=== PATIENT | male | born 1940 | race Two or more races ===

== ENCOUNTER 2018-10-12 19:11 | Inpatient (IN) | payer BC ==
[2018-10-12] MEDS ORDERED: NS 0.9% 1000 ML* 2,000 ML IV ONE (19:44)
[2018-10-12 20:06] LABS: ABS Basophils 0 10^3/ul (0-0.2); ABS Eosinophils 0 10^3/ul (0-0.6); ABS Lymphocytes 1.1 10^3/ul (1.0-4.8); ABS Monocytes 0.7 10^3/ul (0-0.8); ABS Neutrophils 5.4 10^3/ul (1.5-7.7); ABS Nucleated RBC 0 10^3/ul; Eosinophil % 0.6 %; Hematocrit 54 % (42-52); Hemoglobin 18.9 g/dl (14.0-18.0); Lymphocyte % 14.8 %; Mean Corpuscular HGB Conc 35 g/dl (31-36); Mean Corpuscular Hemoglobin 34 pg (27-31); Mean Corpuscular Volume 98 fL (80-94); Mean Platelet Volume 6.6 fL (7.4-10.4); Nucleated Red Blood Cells % 0.1; Platelet Count 227 10^3/ul (150-450); Red Blood Count 5.58 10^6/ul (4.00-5.40); Red Cell Distribution Width 14 % (10.5-15); White Blood Count 7.2 10^3/ul (3.5-10.8)
[2018-10-12 20:25] LABS: Albumin 4.2 g/dL (3.2-5.2); Albumin/Globulin Ratio 1.2 (1-3); BUN/Creatinine Ratio 13.6 (8-20); Calcium 9.2 mg/dL (8.6-10.3); EGFR African American 67.9 (>60); EGFR Non-African American 56.2 (>60); Globulin 3.5 g/dL (2-4); Magnesium 2.2 mg/dL (1.9-2.7); Potassium 3.9 mmol/L (3.5-5.0); Total Bilirubin 1.1 mg/dL (0.2-1.0); Total Protein 7.7 g/dL (6.4-8.9)
[2018-10-12] MEDS ORDERED: Iodixanol* (CONTRAST) 320 MG/ML 100 ML SDV IV ONE (20:39)
--- NOTE | 2018-10-12 20:44 | ED ---
GI/ HPI - HPI Summary HPI Summary: 78 year male with a history of a J-pouch from a colon resection presents with diarrhea for the past 3 days. He states he is not been able to eat anything without having diarrhea. He states just liquid bowel movement. No vomiting or nausea. He states that he is having abdominal pain that feels similar to when he had a small bowel obstruction. He states that he gets dehydrated and becomes very weak quickly to the bowel resection. He states he feels very weak. he admits to mild headache. No fever. No cough. No sore throat. He states he has been drinking Gatorade but feels that he is not keeping up down. Denies any urinary symptoms. He did just come back from [place] couple days ago. No one else is sick. - History of Current Complaint Chief Complaint: EDNauseaVomitDiarrh Time Seen by Provider: 10/12/18 19:44 Stated Complaint: GENERAL ILLNESS Pain Intensity: 3 - Allergy/Home Medications Allergies/Adverse Reactions: Allergies Allergy/AdvReac Type Severity Reaction Status Date / Time Sulfa (Sulfonamide Allergy Hives Verified 10/12/18 19:35 Antibiotics) PMH/Surg Hx/FS Hx/Imm Hx Endocrine/Hematology History: Denies: Hx Anticoagulant Therapy, Hx Diabetes, Hx Systemic Lupus Erythematosus, Hx Thyroid Disease Cardiovascular History: Reports: Hx Syncope - r/t recent dehydration Denies: Hx Congestive Heart Failure, Hx Hypertension Respiratory History: Denies: Hx Asthma, Hx Chronic Obstructive Pulmonary Disease (COPD) GI History: Reports: Hx Gastroesophageal Reflux Disease, Hx Ulcer, Other GI Disorders - colon resection, pt has J pouch since 1998 Comment Only: Hx Gall Bladder Disease - gall bladder removed History: Reports: Hx Kidney Stones - RT 07/19/14 Denies: Hx Dialysis, Hx Renal Disease Musculoskeletal History: Reports: Hx Orthopedic Injury - bilat leg fractures Denies: Hx Rheumatoid Arthritis, Hx Osteoporosis Sensory History: Reports: Hx Vision Problem Opthamlomology History: Reports: Hx Vision Problem - Cancer History Hx Chemotherapy: No - Surgical History Surgery Procedure, Year, and Place: ULCERATIVE COLITIS WITH SURGERY IN 1998 AT [facility]/APPY/CHOLECYSTECTOMY, illiostomy, broken leg,plates Hx Anesthesia Reactions: No Infectious Disease History: No Infectious Disease History: Denies: Hx Hepatitis, Hx Human Immunodeficiency Virus (HIV), Traveled Outside the [place] in Last 30 Days - Family History Known Family History: Positive: Non-Contributory - Social History Alcohol Use: Weekly Alcohol Amount: GLASS OF WINE Substance Use Type: Reports: None Smoking Status (MU): Former Smoker Review of Systems Negative: Fever Negative: Chest Pain Negative: Shortness Of Breath Positive: Abdominal Pain, Diarrhea. Negative: Vomiting, Nausea Negative: dysuria All Other Systems Reviewed And Are Negative: Yes Physical Exam Triage Information Reviewed: Yes Vital Signs On Initial Exam: Initial Vitals Temp Pulse Resp BP Pulse Ox 98.7 F 75 16 133/83 95 10/12/18 19:32 10/12/18 19:32 10/12/18 19:32 10/12/18 19:32 10/12/18 19:32 Vital Signs Reviewed: Yes Appearance: Positive: Ill-Appearing Skin: Positive: Other - decreased skin turgor Head/Face: Positive: Normal Head/Face Inspection Eyes: Positive: Normal, Conjunctiva Clear ENT: Positive: Pharynx normal Respiratory/Lung Sounds: Positive: Clear to Auscultation, Breath Sounds Present Cardiovascular: Positive: Normal, RRR Abdomen Description: Positive: Soft, Other: - mild diffuse abd tenderness Bowel Sounds: Positive: Present Musculoskeletal: Positive: Normal Neurological: Positive: Normal Psychiatric: Positive: Normal Diagnostics - Vital Signs Vital Signs Temp Pulse Resp BP Pulse Ox 10/12/18 19:32 98.7 F 75 16 133/83 95 - Laboratory Lab Results: Lab Results 10/12/18 10/12/18 10/12/18 Range/Units 19:55 19:55 19:55 WBC 7.2 (3.5-10.8) 10^3/ul RBC 5.58 H (4.00-5.40) 10^6/ul Hgb 18.9 H (14.0-18.0) g/dl Hct 54 H (42-52) % MCV 98 H (80-94) fL MCH 34 H (27-31) pg MCHC 35 (31-36) g/dl RDW 14 (10.5-15) % Plt Count 227 (150-450) 10^3/ul MPV 6.6 L (7.4-10.4) fL Neut % (Auto) 75.1 % Lymph % (Auto) 14.8 % [place] % (Auto) 9.1 % Eos % (Auto) 0.6 % Baso % (Auto) 0.4 % Absolute Neuts (auto) 5.4 (1.5-7.7) 10^3/ul Absolute Lymphs (auto) 1.1 (1.0-4.8) 10^3/ul Absolute Monos (auto) 0.7 (0-0.8) 10^3/ul Absolute Eos (auto) 0 (0-0.6) 10^3/ul Absolute Basos (auto) 0 (0-0.2) 10^3/ul Absolute Nucleated RBC 0 10^3/ul Nucleated RBC % 0.1 Sodium 131 L (135-145) mmol/L Potassium 3.9 (3.5-5.0) mmol/L Chloride 100 L (101-111) mmol/L Carbon Dioxide 22 (22-32) mmol/L Anion Gap 9 (2-11) mmol/L BUN 17 (6-24) mg/dL Creatinine 1.25 H (0.67-1.17) mg/dL Est GFR ( Amer) 67.9 (>60) Est GFR (Non-Af Amer) 56.2 (>60) BUN/Creatinine Ratio 13.6 (8-20) Glucose 106 H (70-100) mg/dL Lactic Acid 1.0 (0.5-2.0) mmol/L Calcium 9.2 (8.6-10.3) mg/dL Magnesium 2.2 (1.9-2.7) mg/dL Total Bilirubin 1.10 H (0.2-1.0) mg/dL AST 35 (13-39) U/L ALT 33 (7-52) U/L Alkaline Phosphatase 84 (34-104) U/L C-Reactive Protein 10.00 H (<8.01) mg/L Total Protein 7.7 (6.4-8.9) g/dL Albumin 4.2 (3.2-5.2) g/dL Globulin 3.5 (2-4) g/dL Albumin/Globulin Ratio 1.2 (1-3) Lipase 12 (11.0-82.0) U/L Result Diagrams: 10/12/18 19:55 10/12/18 19:55 Lab Statement: Any lab studies that have been ordered have been reviewed, and results considered in the medical decision making process. - CT abd CT Interpretation Completed By: Radiologist Summary of CT Findings: IMPRESSION: 1. Mild small bowel obstruction with a point of transition in the lower right. abdomen which may reflect an adhesion. The appearance is similar to 08/04/2014. although the distal bowel is more collapsed giving a more dramatic transition. point. 2. Subtotal colectomy with distal ileocolic anastomosis. 3. Mild fatty infiltration of the liver. 4. Slight induration of central mesentery which is decreased since the prior. study. Re-Evaluation - Re-Evaluation First Eval Re-Evaluation Time: 20:52 Change: Improved Comment: feeling better after fluids GIGU Course/Dx - Course Course Of Treatment: 78 year male with a history of a J-pouch from a colon resection presents with diarrhea for the past 3 days. He states that he is having abdominal pain that feels similar to when he had a small bowel obstruction. No fever. He did just come back from [place] couple days ago. No one else is sick. on exam mild diffuse abd tenderness. wbc normal. sodium low so gave fluids. CT shows ileus vs SBO. spoke with radiologist about this read and states that he sees a transition point. discussed with dr cao who agrees to admit - Diagnoses Differential Diagnoses - Male: Gastroenteritis (Bacterial), Gastroenteritis ( Viral), Urinary Tract Infection Provider Diagnoses: Diarrhea, Small bowel obstruction Discharge - Sign-Out/Discharge Documenting (check all that apply): Patient Departure - Discharge Plan Condition: Stable Disposition: ADMITTED TO [facility] - Billing Disposition and Condition Condition: STABLE Disposition: Admitted to [facility]
[2018-10-12] MEDS ORDERED: NS 0.9% 1000 ML* 1,000 ML IV ONE (20:45)
[2018-10-12 21:08] LABS: Urine Appearance Clear; Urine Bilirubin Negative (Negative); Urine Blood Negative (Negative); Urine Color Yellow; Urine Glucose Negative (Negative); Urine Ketones Negative (Negative); Urine Nitrite Negative (Negative); Urine Protein Negative (Negative); Urine Specific Gravity 1.003 (1.010-1.030); Urine Urobilinogen Negative (Negative)
[2018-10-12] MEDS ORDERED: Ondansetron INJ* 2 MG/ML VIAL IV ONE (22:59)
[2018-10-12] MEDS ORDERED: Ondansetron INJ* 2 MG/ML VIAL IV PRN (23:20)
[2018-10-12] MEDS ORDERED: Morphine VIAL* 4 MG/ML VIAL (1 ml vial) IV PRN (23:21)
--- NOTE | 2018-10-13 01:02 | ADMNOTE ---
Subjective Date of Service: 10/12/18 Interval History: HISTORY & PHYSICAL CC: abdo pain HPI: Patient is 78 year old man w/ history of ulcerative colitis and total colectomy with J-pouch. He has had 2 days of increasing diarrhea frequency, abdominal bloating and cramps, nausea, and anorexia. He rates pain in abdomen 3- 5/10. He began vomiting in the ER after presentation. Denies fever. No blood seen in stool. Pain is in waves, colicky. Tried immodium at home for diarrhea. Had SBO one other occasion, admitted to this hospital in 2014. This feels like the same syndrome to the patient. 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 Smoked in distant past, alcohol socially, no drugs Past Medical History: Findings - PMH: Ulcerative colitis, GERD, dysphagia, BPH. PSH J-pouch 1998 w/ Dr. Glover in [place], cholecystectomy, RT ureter stented Review of Systems - Measurements Intake and Output: Intake and Output Last 24 Hours 10/10/18 10/11/18 10/12/18 10/13/18 06:59 06:59 06:59 06:59 Intake Total 1999 Balance 1999 Weight 92.986 kg Intake: IV Fluids 1999 - Review of Systems Constitutional Symptoms: Negative: Weight Loss, Fever Dermatology: Positive: Normal HEENT: Positive: Normal Eyes: Positive: Normal Thyroid: Positive: Normal Pulmonary: Positive: Normal Cardiology: Positive: Normal Gastroenterology: Positive: Abdominal Pain, Nausea, Vomiting, Anorexia, Diarrhea , Change in Bowel Habits Negative: Constipation, Blood in Stools Genital - Urinary: Positive: Normal Genitourinary - Male: Positive: Prostatism Endocrinology: Positive: Normal Neurology: Positive: Normal Psychiatry: Positive: Normal Objective Active Medications: Enoxaparin Sodium (Lovenox(*)) 40 mg SUBCUT Q24H CRISTOBAL Sodium Chloride (Ns 0.9% 1000 Ml*) 1,000 mls @ 125 mls/hr IV PER RATE CRISTOBAL Morphine Sulfate (Morphine Vial*) 2 mg IV Q2H PRN PRN Reason: PAIN Ondansetron HCl (Zofran Inj*) 4 mg IV Q6H PRN PRN Reason: NAUSEA Vital Signs - 8 hr 01/06/19 01/06/19 01/06/19 19:32 19:37 19:38 Temperature 37.1 C Pulse Rate 75 77 77 Respiratory 16 Rate Blood Pressure 133/83 124/87 (mmHg) O2 Sat by Pulse 95 96 94 Oximetry 10/12/18 10/12/18 10/12/18 21:37 22:00 22:07 Temperature Pulse Rate 68 65 64 Respiratory Rate Blood Pressure 116/81 112/67 (mmHg) O2 Sat by Pulse 97 95 94 Oximetry 10/12/18 10/13/18 22:37 00:30 Temperature 37.0 C Pulse Rate 67 67 Respiratory 15 Rate Blood Pressure 116/76 118/63 (mmHg) O2 Sat by Pulse 95 100 Oximetry Oxygen Devices in Use Now: None Appearance: no distress Eyes: No Scleral Icterus Ears/Nose/Mouth/Throat: NL Teeth, Lips, Gums Neck: NL Appearance and Movements; NL JVP Respiratory: Symmetrical Chest Expansion and Respiratory Effort, Clear to Auscultation Cardiovascular: NL Sounds; No Murmurs; No JVD, RRR Abdominal: No Hepatosplenomegaly, - - distended, soft, hyperactive BS, mildly tender epigastric Lymphatic: No Cervical Adenopathy Extremities: No Edema Skin: No Rash or Ulcers Neurological: Alert and Oriented x 3 Lines/Tubes/Other Access: Clean, Dry and Intact Peripheral IV Nutrition: Taking PO's Result Diagrams: 10/12/18 19:55 10/12/18 19:55 Additional Lab and Data: Laboratory Tests 10/12/18 10/12/18 10/12/18 19:55 19:55 20:51 Lactic Acid 1.0 Calcium 9.2 Magnesium 2.2 Total Bilirubin 1.10 H AST 35 ALT 33 C-Reactive Protein 10.00 H Albumin 4.2 Lipase 12 Ur Specific [place] 1.003 L Microbiology and Other Data: Microbiology 10/12/18 20:51 Stool Gross Appearance - Final Stool C. difficile DNA Amplification - Final 027 Presumptive NEGATIVE Toxigenic C.diff NEGATIVE Diagnostic Imaging: CT abdo/pelvis: transition point in RLQ, SBO Assess/Plan/Problems-Billing Assessment: 78 year old man w/ recurrent small bowel obstruction - Patient Problems (1) Small bowel obstruction Current Visit: Yes Status: Acute Priority: High Onset Date: 08/04/14 Code(s): K56.69 - OTHER INTESTINAL OBSTRUCTION * DO NOT USE * SNOMED Code(s): 684239261 Comment: [place] [facility] [place] rest, IV fluids to maintain hydration -antiemetics, will place NGT if vomiting -will have surgical consult if not resolving in 1-2 days (2) History of renal stent Current Visit: Yes Status: Chronic Priority: Medium Code(s): Z98.89 - OTHER SPECIFIED POSTPROCEDURAL STATES * DO NOT USE * SNOMED Code(s): 914400297 Comment: Creatinine mildly above baseline due to pre-renal state, will recheck in AM after rehydration (3) DVT prophylaxis Current Visit: Yes Status: Acute Priority: Low Code(s): XAX7170 - SNOMED Code(s): 562718999 Comment: -high risk -SCDs plus Lovenox Status and Disposition: Requires inpatient stay for monitoring, potential surgery.
[2018-10-13] MEDS: NS 0.9% 1000 ML* 1,000 ML IV SCH ×4 (01:25→23:39)
[2018-10-13] MEDS: Enoxaparin(*) 40 MG/0.4 ML SYR SUBCUT SCH ×2 (01:50→23:40)
[2018-10-13] MEDS ORDERED: PROCHLORPERAZINE INJ 5 MG/ML 2 ML VIAL IV PRN (02:07)
[2018-10-13 06:10] LABS: ABS Basophils 0 10^3/ul (0-0.2); ABS Eosinophils 0 10^3/ul (0-0.6); ABS Monocytes 0.6 10^3/ul (0-0.8); ABS Nucleated RBC 0 10^3/ul; Eosinophil % 0.2 %; Hematocrit 50 % (42-52); Hemoglobin 17.3 g/dl (14.0-18.0); Lymphocyte % 11.6 %; Mean Corpuscular HGB Conc 35 g/dl (31-36); Mean Corpuscular Hemoglobin 34 pg (27-31); Mean Corpuscular Volume 98 fL (80-94); Mean Platelet Volume 6.7 fL (7.4-10.4); Nucleated Red Blood Cells % 0; Platelet Count 223 10^3/ul (150-450); Red Blood Count 5.11 10^6/ul (4.00-5.40); Red Cell Distribution Width 14 % (10.5-15); White Blood Count 8.6 10^3/ul (3.5-10.8)
[2018-10-13 06:33] LABS: BUN/Creatinine Ratio 14.2 (8-20); Calcium 8.4 mg/dL (8.6-10.3); EGFR African American 71.2 (>60); EGFR Non-African American 58.9 (>60); Potassium 4.4 mmol/L (3.5-5.0)
[2018-10-13 09:32] LABS: Influenza A Molecular NEGATIVE (Negative); Influenza B Molecular NEGATIVE (Negative)
--- NOTE | 2018-10-13 09:58 | PN ---
Subjective Date of Service: 10/13/18 Interval History: Pt states that he is feeling better today. He states that he continues to have diarrhea, but it has decreased from 6-7 times per day to 2-4. He feels that his abdomen is distended and that he continues to have discomfort. 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 Smoked in distant past, alcohol socially, no drugs Past Medical History: Findings - PMH: Ulcerative colitis, GERD, dysphagia, BPH. PSH J-pouch 1998 w/ Dr. Glover in [place], cholecystectomy, RT ureter stented Objective Active Medications: Enoxaparin Sodium (Lovenox(*)) 40 mg SUBCUT Q24H CRISTOBAL Sodium Chloride (Ns 0.9% 1000 Ml*) 1,000 mls @ 125 mls/hr IV PER RATE CRISTOBAL Morphine Sulfate (Morphine Vial*) 2 mg IV Q2H PRN Ondansetron HCl (Zofran Inj*) 4 mg IV Q6H PRN Prochlorperazine Edisylate (Compazine Inj*) 5 mg IV Q6H PRN Vital Signs: Temp Pulse Resp BP Pulse Ox 98.5 F 66 16 95/51 94 10/13/18 07:40 10/13/18 07:40 10/13/18 07:40 10/13/18 07:40 10/13/18 07:40 Oxygen Devices in Use Now: None Appearance: Pt is resting comfortably in bed with HOB elevated 45-degrees. He is in no acute distress. Eyes: No Scleral Icterus, PERRLA, - - EOMI Ears/Nose/Mouth/Throat: NL Teeth, Lips, Gums, - - Mucous membranes dry, tongue midline. Neck: NL Appearance and Movements; NL JVP, Trachea Midline Respiratory: Symmetrical Chest Expansion and Respiratory Effort, Clear to Auscultation Cardiovascular: NL Sounds; No Murmurs; No JVD, RRR, No Edema Abdominal: - - Bowel sounds hypoactive in all 4 quadrants, without high pitched sounds; abdomen is distended and firm; tender to palpation Extremities: No Edema, No Clubbing, Cyanosis Skin: No Rash or Ulcers Neurological: Alert and Oriented x 3 Result Diagrams: 10/13/18 05:27 10/13/18 05:27 Additional Lab and Data: Laboratory Tests 10/12/18 10/12/18 10/12/18 19:55 19:55 20:51 Lactic Acid 1.0 Calcium 9.2 Magnesium 2.2 Total Bilirubin 1.10 H AST 35 ALT 33 C-Reactive Protein 10.00 H Albumin 4.2 Lipase 12 Ur Specific [place] 1.003 L Microbiology and Other Data: Microbiology 10/12/18 20:51 Stool Gross Appearance - Final Stool C. difficile DNA Amplification - Final 027 Presumptive NEGATIVE Toxigenic C.diff NEGATIVE Diagnostic Imaging: CT abdo/pelvis: transition point in RLQ, SBO Assess/Plan/Problems-Billing Assessment: 78 year old man w/ recurrent small bowel obstruction - Patient Problems (1) Small bowel obstruction Comment: -Pt still distended with decr BS, but states he is feeling better with decreased diarrhea -Bowel rest, IV fluids to maintain hydration -Antiemetics, will place NGT if vomiting -Surgical consult ordered (2) History of renal stent Comment: -Cr is trending down -Continue IVF (3) DVT prophylaxis Comment: -Continue SCDs plus Lovenox (4) Full code status Status and Disposition: Requires inpatient stay for monitoring, potential surgery.
--- NOTE | 2018-10-13 16:29 | PN ---
Progress Note - Progress Note Date of Service: 10/13/18 SOAP: Subjective: Patient seen and care discussed with Joy Carpenter NP He has history of ulcerative colitis and underwent total proctocolectomy with ileal J-pouch in [place] 21 years ago. Had one admission for SBO in 2013 that improved after 5 days Since Saturday has had abdominal distension and some pain-still having loose watery green bowel movements (he usually has 5-6 "mushy" stools per day). Feels better Objective: Temp Pulse Resp BP Pulse Ox 99.0 F 64 16 104/55 95 10/13/18 11:21 10/13/18 11:21 10/13/18 11:21 10/13/18 11:21 10/13/18 11:21 PEX: Comfortable Abd is soft and non-distended. Bowel sounds are present but hypoactive. Mild tenderness throughout, no hernia noted. Midline incision intact CT and AXR reviewed Assessment: SBO S/P total procolectomy--SBO Plan: Continue conservative non-operative management Repeat x-rays in AM All discussed with patient.
--- NOTE | 2018-10-13 19:11 | CONS ---
CC: Dr. Berry at [facility] SURGICAL CONSULTATION: DATE OF CONSULT: 10/13/18 LOCATION: This patient was seen in room 349 at [facility] on Saturday, CHIEF COMPLAINT: Abdominal pain. HISTORY OF PRESENT ILLNESS: The patient is a 78-year-old male with a history of ulcerative colitis and subtotal collectomy with J-pouch in 1998 in [place]. He has had 2 days of increasing diarrhea frequency, abdominal bloating, cramps, nausea and anorexia. He initially rated the abdominal pain 5/ 10. He began vomiting in the emergency room after presentation. He denied any fever or blood in the stool. He describes the pain as coming in waves. He tried Imodium at home for the diarrhea, but felt that he could not keep up with the output. He had a similar episode at this hospital in 2014, which he states resolved with medical management. CAT scan of the abdomen and pelvis was done on 10/12/18, which showed mild small bowel obstruction with point of transition in the lower right abdomen. Abdominal x- ray that was done today was read as small bowel obstruction, appearing worse when compared with the CAT scan of yesterday; there was no free air; there was gas filled loops of the small bowel to the right of the midline in the upper abdomen. The patient states that he is feeling better today; he continues to have diarrhea, but it has decreased 7 times per day to 2 to 3 times per day. He continues to have waves of crampy pain and states that his abdomen is typically flat. He denies any nausea or vomiting today. He states that he and his travelled to [place] in September and stayed there for 2 weeks and returned back to [place] 10/05/18. He states that he typically has a very good appetite without any food restrictions, but his typical diet are fish and stir-fried vegetables. He states that on Saturday and Saturday of last week, he ate steak and wondered if that was implicated in the small bowel obstruction. PAST MEDICAL HISTORY: Ulcerative colitis with subtotal collectomy and J-pouch, [address]over in [place]; laparoscopic cholecystectomy also in [place] about 5 years ago; benign prostatic hypertrophy, and he also had his right ureter stented in the past. MEDICATIONS: No home medications. ALLERGIES: SULFONAMIDE ANTIBIOTICS. FAMILY HISTORY: Mother with history of type 2 diabetes and chronic kidney disease; father of myocardial infarction at age 75. 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 He drinks alcohol socially and denies the use of other substances. REVIEW OF SYSTEMS: Constitutional: Fever and chills as described in history of present illness. No weight loss or excessive fatigue. Respiratory: No chronic cough or shortness of breath. Cardiovascular: No anginal chest pain or palpitations. No history of myocardial infarction. Gastrointestinal: Described in history of present illness. Genitourinary: No recent dysuria; history of BPH. Endocrine: No diabetes or thyroid disease. Musculoskeletal: No chronic back or joint pain. Hematologic: No easy bruising or bleeding. Neurologic: No blurred vision. No areas of focal weakness. PHYSICAL EXAM: General Survey: The patient is a 78-year-old male, well developed, well nourished in no acute distress. Height 5 feet 10 inches, weight 205 pounds, body mass index 29.4. Blood pressure 104/55, pulse 64 and regular, respiratory rate 16, O2 saturation on room air 95%, temperature 99. Physical exam focused on the abdomen, there are active bowel sounds, some are high pitched; the abdomen is distended and soft; there is tenderness bilaterally above the umbilicus, no guarding, no rebound tenderness. There is a well healed midline scar. IMPRESSION: Small bowel obstruction described as having a transition point in the right lower quadrant; the patient is status post subtotal collectomy with J- pouch. The abdominal x-ray was read today as worsening small bowel obstruction when compared with the CAT scan of yesterday with gas filled loops of small bowel to the right of the midline in the upper abdomen. The patient states that he is feeling better today. Continues to have diarrhea, but is less frequent; he states that with his previous small bowel obstruction, it took 3 to 4 days of bowel rest for resolution. He states that he is open if surgery is indicated and most likely would also seek a second opinion from his surgeon in [place], but esperanza be open to having his surgery done here in [place]. PLAN: Discussed above findings with Dr. Berry; continue bowel rest with n.p.o. and IV fluids; repeat abdominal x-ray and CBC tomorrow morning. TIME SPENT: Sixty minutes with greater than 50% in [id number] examination of the patient, patient's education and coordination of care. ANGELY PASTOR NP [id number]/[facility] #: [id number] SARAH
[2018-10-14 05:39] LABS: ABS Basophils 0 10^3/ul (0-0.2); ABS Eosinophils 0 10^3/ul (0-0.6); ABS Lymphocytes 0.6 10^3/ul (1.0-4.8); ABS Monocytes 0.4 10^3/ul (0-0.8); ABS Neutrophils 6.5 10^3/ul (1.5-7.7); ABS Nucleated RBC 0 10^3/ul; Eosinophil % 0.1 %; Hematocrit 50 % (42-52); Hemoglobin 17.4 g/dl (14.0-18.0); Lymphocyte % 8.5 %; Mean Corpuscular HGB Conc 35 g/dl (31-36); Mean Corpuscular Hemoglobin 34 pg (27-31); Mean Corpuscular Volume 99 fL (80-94); Nucleated Red Blood Cells % 0.1; Platelet Count 211 10^3/ul (150-450); Red Blood Count 5.07 10^6/ul (4.00-5.40); Red Cell Distribution Width 13 % (10.5-15); White Blood Count 7.6 10^3/ul (3.5-10.8)
[2018-10-14 06:00] LABS: BUN/Creatinine Ratio 19.1 (8-20); Calcium 8.7 mg/dL (8.6-10.3); EGFR African American 64.4 (>60); EGFR Non-African American 53.2 (>60); Potassium 4.9 mmol/L (3.5-5.0)
--- NOTE | 2018-10-14 08:25 | PN ---
Subjective Date of Service: 10/14/18 Interval History: Pt states that he is feeling a little bit better each day and that he is walking the halls to try to stimulate his bowels. He reports that, when he gets up and washes his mouth out, he starts to "dry heave." This occurs only when he attempts to rinse his mouth out. He states that he continues to have watery stool, reporting that he had 4 BMs last night that were all smaller in volume and watery. He is also reporting flatus. He believes that he is less "bloated" and distended today. Denies CP, jacobsen, SOB, edema, fever/chils. 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 Smoked in distant past, alcohol socially, no drugs Past Medical History: Findings - PMH: Ulcerative colitis, GERD, dysphagia, BPH. PSH J-pouch 1998 w/ Dr. Glover in [place], cholecystectomy, RT ureter stented Objective Active Medications: Enoxaparin Sodium (Lovenox(*)) 40 mg SUBCUT Q24H CRISTOBAL Sodium Chloride (Ns 0.9% 1000 Ml*) 1,000 mls @ 100 mls/hr IV PER RATE CRISTOBAL Sodium Chloride (Ns 0.9% 1000 Ml*) 1,000 mls @ 150 mls/hr IV PER RATE CRISTOBAL Morphine Sulfate (Morphine Vial*) 2 mg IV Q2H PRN Ondansetron HCl (Zofran Inj*) 4 mg IV Q6H PRN Prochlorperazine Edisylate (Compazine Inj*) 5 mg IV Q6H PRN Vital Signs: Temp Pulse Resp BP Pulse Ox 98.3 F 64 17 124/69 98 10/14/18 03:30 10/14/18 03:30 10/14/18 03:30 10/14/18 03:30 10/14/18 03:30 Oxygen Devices in Use Now: None Appearance: Pt is sitting up in bed, in no acute distress. Eyes: No Scleral Icterus, PERRLA Ears/Nose/Mouth/Throat: NL Teeth, Lips, Gums, Mucous Membranes Moist Neck: NL Appearance and Movements; NL JVP, Trachea Midline Respiratory: Symmetrical Chest Expansion and Respiratory Effort, Clear to Auscultation Cardiovascular: NL Sounds; No Murmurs; No JVD, RRR, No Edema Abdominal: - - BS hypoactive; tender to palpation; abdomen distended, soft; midline scar intact Extremities: No Edema, No Clubbing, Cyanosis Skin: No Rash or Ulcers Neurological: Alert and Oriented x 3, NL Sensation, NL Gait Result Diagrams: 10/14/18 04:43 10/14/18 04:43 Microbiology and Other Data: Microbiology 10/12/18 20:51 Stool Gross Appearance - Final Stool C. difficile DNA Amplification - Final 027 Presumptive NEGATIVE Toxigenic C.diff NEGATIVE Assess/Plan/Problems-Billing Assessment: 78 year old man w/ recurrent small bowel obstruction. - Patient Problems (1) Small bowel obstruction Comment: -Pt still distended with decr BS and mild distention, but continuing to improve and produce flatus and BMs -Abdominal x-ray from this morning reveals: "persistent bowel obstruction yielding similar diameter measurments as the October radiograph." -Thank you for the surgical consult- will continue conservative non-operative management and consider laparotomy if no improvement in 24-48hr -Bowel rest, IV fluids to maintain hydration -Antiemetics, will place NGT if vomiting -Stool cultures negative (2) History of renal stent Comment: -Cr continues to be elevated -IVF increased -Recheck in a.m. (3) DVT prophylaxis Comment: -Continue SCDs plus Lovenox (4) Full code status Status and Disposition: Requires inpatient stay for monitoring, potential surgery.
[2018-10-14] MEDS: NS 0.9% 1000 ML* 1,000 ML IV SCH ×2 (08:38→16:52)
--- NOTE | 2018-10-14 13:19 | PN ---
Progress Note - Progress Note Date of Service: 10/14/18 SOAP: Subjective: Had larger BM last night and is passing flatus Mild abdominal pain No vomiting Objective: Temp Pulse Resp BP Pulse Ox 97.5 F 70 16 109/50 94 10/14/18 07:25 10/14/18 07:25 10/14/18 08:40 10/14/18 07:25 10/14/18 07:25 PEX: Comfortable Abd is soft and distended. Tympanitic to percussion. Bowel sounds present and decreased. Mild tenderness, no rebound or guarding Laboratory Results - last 24 hr 10/14/18 10/14/18 04:43 04:43 WBC 7.6 RBC 5.07 Hgb 17.4 Hct 50 MCV 99 H MCH 34 H MCHC 35 RDW 13 Plt Count 211 MPV 7.0 L Neut % (Auto) 85.5 Lymph % (Auto) 8.5 [place] % (Auto) 5.7 Eos % (Auto) 0.1 Baso % (Auto) 0.2 Absolute Neuts (auto) 6.5 Absolute Lymphs (auto) 0.6 L Absolute Monos (auto) 0.4 Absolute Eos (auto) 0 Absolute Basos (auto) 0 Absolute Nucleated RBC 0 Nucleated RBC % 0.1 Sodium 138 Potassium 4.9 Chloride 106 Carbon Dioxide 23 Anion Gap 9 BUN 25 H Creatinine 1.31 H Est GFR ( Amer) 64.4 Est GFR (Non-Af Amer) 53.2 BUN/Creatinine Ratio 19.1 Glucose 109 H Calcium 8.7 AXR 10/14 reviewed--appears worsening of small bowel distension Assessment: SBO-s/p total proctocolectomy with ileal J pouch--clinically slightly feels better and passing loose stool and flatus, films appear with more dilated SB than yesterday Plan: Continue NPO, IVF If no improvement next 24-48 hours, will need to consider laparotomy.
[2018-10-14] MEDS: Enoxaparin(*) 40 MG/0.4 ML SYR SUBCUT SCH (23:53)
[2018-10-15] MEDS: NS 0.9% 1000 ML* 1,000 ML IV SCH ×2 (00:41→07:32)
[2018-10-15 05:52] LABS: BUN/Creatinine Ratio 22.6 (8-20); Calcium 8.3 mg/dL (8.6-10.3); EGFR African American 82.2 (>60); EGFR Non-African American 67.9 (>60); Potassium 4.4 mmol/L (3.5-5.0)
--- NOTE | 2018-10-15 09:39 | PN ---
Progress Note - Progress Note Date of Service: 10/15/18 SOAP: Subjective: Feels better today-loose BM's and some flatus when he strains. No abdominal pain, no nausea or vomiting Remains distended Objective: Temp Pulse Resp BP Pulse Ox 97.9 F 62 17 129/69 100 10/15/18 07:30 10/15/18 07:30 10/15/18 07:30 10/15/18 07:30 10/15/18 07:30 Intake & Output 10/13/18 10/14/18 10/15/18 10/16/18 06:59 06:59 06:59 06:59 Intake Total 1999 2381 1994 981 Output Total 200 650 Balance 1999 2182 1345 981 Weight 205 lb Intake: IV Fluids 1999 2381 1994 981 NS (0.9%) 2381 1994 981 Oral 0 0 Output: Urine 200 650 Other: Estimated Void Medium Large Date of Last Bowel 10/14/18 10/15/2018 Movement # Bowel Movements 1 1 Estimated Stool Amount Medium Small # Voids 2 1 PEX: Comfortable Abd is less distended but still tympanitic Bowel sounds decreased throughout, not high pitched or tinkling No tenderness Laboratory Results - last 24 hr 10/15/18 05:07 Sodium 140 Potassium 4.4 Chloride 110 Carbon Dioxide 24 Anion Gap 6 BUN 24 Creatinine 1.06 Est GFR ( Amer) 82.2 Est GFR (Non-Af Amer) 67.9 BUN/Creatinine Ratio 22.6 H Glucose 110 H Calcium 8.3 L Assessment: SBO-pt S/P total proctocolectomy with ileal J-Pouch for ulcerative colitis Clinically slightly better however still with signs and symptoms of high grade partial SBO--no urgent clinical indication at this time for laparotomy and he would like to continue with present care an "wait it out" although I did discuss fact that usually if has not improved or resolved in 72 hours surgery is usually considered although this applies more to complete bowel obstructions. He continues to refuse NGT Plan: Continue NPO/IVF Increase activity Follow for now.
--- NOTE | 2018-10-15 16:21 | PN ---
Subjective Date of Service: 10/15/18 Interval History: Pt states that he feels he is doing better every day; he feels he has less distention. States that he continues to have "dry heaves," stating that he washes his mouth, spits, and this leads to "gagging." He is having 4-5 BMs per day that are loose and of varying volume that he has to strain to produce. He denies having passed gas in the last 24hrs. He has abdominal pain that is relieved with BMs and then builds in intensity until his next BM. Denies CP, SOB, fever/chills/sweats. 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 Smoked in distant past, alcohol socially, no drugs Past Medical History: Findings - PMH: Ulcerative colitis, GERD, dysphagia, BPH. PSH J-pouch 1998 w/ Dr. Glover in [place], cholecystectomy, RT ureter stented Objective Active Medications: Enoxaparin Sodium (Lovenox(*)) 40 mg SUBCUT Q24H [facility] Dextrose/Sodium Chloride (D5w 1/2 Ns 1000 Ml Bag*) 1,000 mls @ 100 mls/hr IV PER RATE [facility] Morphine Sulfate (Morphine Vial*) 2 mg IV Q2H PRN Ondansetron HCl (Zofran Inj*) 4 mg IV Q6H PRN Prochlorperazine Edisylate (Compazine Inj*) 5 mg IV Q6H PRN Vital Signs: Temp Pulse Resp BP Pulse Ox 97.9 F 62 17 129/69 100 10/15/18 07:30 10/15/18 07:30 10/15/18 07:30 10/15/18 07:30 10/15/18 07:30 Oxygen Devices in Use Now: None Appearance: Pt is sitting upright in chair; walks to bed for abdominal exam. Pt is pleasant and interactive, in no acute distress. Eyes: No Scleral Icterus, PERRLA, - - EOMI Ears/Nose/Mouth/Throat: NL Teeth, Lips, Gums, - - Mucous membranes appear dry Neck: NL Appearance and Movements; NL JVP, Trachea Midline Respiratory: Symmetrical Chest Expansion and Respiratory Effort, Clear to Auscultation Cardiovascular: NL Sounds; No Murmurs; No JVD, RRR, No Edema Abdominal: No Hepatosplenomegaly, - - BS hypoactive; abd is soft and distended, but appears less distended than previous day. Tympanic bowel sounds. Mildly tender to palpation. Extremities: No Edema, No Clubbing, Cyanosis Skin: No Rash or Ulcers Neurological: Alert and Oriented x 3, NL Gait Result Diagrams: 10/14/18 04:43 10/15/18 05:07 Additional Lab and Data: Laboratory Tests 10/12/18 10/12/18 10/12/18 19:55 19:55 20:51 Lactic Acid 1.0 Calcium 9.2 Magnesium 2.2 Total Bilirubin 1.10 H AST 35 ALT 33 C-Reactive Protein 10.00 H Albumin 4.2 Lipase 12 Ur Specific [place] 1.003 L Microbiology and Other Data: Microbiology 10/12/18 20:51 Stool Gross Appearance - Final Stool C. difficile DNA Amplification - Final 027 Presumptive NEGATIVE Toxigenic C.diff NEGATIVE Diagnostic Imaging: CT abdo/pelvis: transition point in RLQ, SBO Assess/Plan/Problems-Billing Assessment: 78 year old man w/ recurrent small bowel obstruction. - Patient Problems (1) Small bowel obstruction Comment: -Pt still distended with decr BS and mild tenderness, but continuing to improve and produce BMs -Bowel rest, IV fluids to maintain hydration (switched to D5 1/2 NS at 100ml/h) -Antiemetics, will place NGT if vomiting -Stool cultures negative (2) History of renal stent Comment: -BUN, Cr have normalized -NS replaced with D5 1/2 NS at a rate of 100/h -Recheck in a.m. (3) DVT prophylaxis Comment: -Continue SCDs plus Lovenox (4) Full code status Status and Disposition: Requires inpatient stay for monitoring, potential surgery.
[2018-10-15] MEDS: D5W 1/2 NS 1000 ML BAG* 1,000 ML IV SCH (16:46)
[2018-10-16] MEDS: Enoxaparin(*) 40 MG/0.4 ML SYR SUBCUT SCH (00:58)
[2018-10-16] MEDS: D5W 1/2 NS 1000 ML BAG* 1,000 ML IV SCH ×2 (02:40→12:35)
[2018-10-16 06:38] LABS: ABS Basophils 0 10^3/ul (0-0.2); ABS Eosinophils 0 10^3/ul (0-0.6); ABS Lymphocytes 1.3 10^3/ul (1.0-4.8); ABS Monocytes 0.6 10^3/ul (0-0.8); ABS Neutrophils 7.3 10^3/ul (1.5-7.7); ABS Nucleated RBC 0 10^3/ul; Eosinophil % 0.3 %; Hematocrit 47 % (42-52); Lymphocyte % 13.7 %; Mean Corpuscular HGB Conc 34 g/dl (31-36); Mean Corpuscular Hemoglobin 34 pg (27-31); Mean Corpuscular Volume 98 fL (80-94); Mean Platelet Volume 7.4 fL (7.4-10.4); Nucleated Red Blood Cells % 0.1; Platelet Count 204 10^3/ul (150-450); Red Blood Count 4.73 10^6/ul (4.00-5.40); Red Cell Distribution Width 13 % (10.5-15); White Blood Count 9.2 10^3/ul (3.5-10.8)
[2018-10-16 06:48] LABS: Calcium 8.7 mg/dL (8.6-10.3); Magnesium 2.2 mg/dL (1.9-2.7); Potassium 3.7 mmol/L (3.5-5.0)
[2018-10-16 06:54] LABS: EGFR African American 99.3 (>60); Phosphorus 1.8 mg/dL (2.5-5.0)
--- NOTE | 2018-10-16 11:45 | PN ---
Subjective Date of Service: 10/16/18 Interval History: Pt continues to improve daily and continues to pass stool and flatus. He states that he attempts to have a bowel movement every 3 hours, resulting in 4- 6 bowel movements with liquid stool per day. His diet has been advanced to clear liquids, which he is slowly drinking and tolerating well with no nausea. He is still having "minor abdominal pain." Denies CP, SOB, cough, fever/chills , n/v. 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 Smoked in distant past, alcohol socially, no drugs Past Medical History: Findings - PMH: Ulcerative colitis, GERD, dysphagia, BPH. PSH J-pouch 1998 w/ Dr. Glover in [place], cholecystectomy, RT ureter stented Objective Active Medications: Enoxaparin Sodium (Lovenox(*)) 40 mg SUBCUT Q24H [facility] Dextrose/Sodium Chloride (D5w 1/2 Ns 1000 Ml Bag*) 1,000 mls @ 100 mls/hr IV PER RATE [facility] Morphine Sulfate (Morphine Vial*) 2 mg IV Q2H PRN Ondansetron HCl (Zofran Inj*) 4 mg IV Q6H PRN Prochlorperazine Edisylate (Compazine Inj*) 5 mg IV Q6H PRN Vital Signs: Temp Pulse Resp BP Pulse Ox 98.0 F 56 18 117/58 96 10/16/18 07:53 10/16/18 07:53 10/16/18 08:00 10/16/18 07:53 10/16/18 07:53 Oxygen Devices in Use Now: None Appearance: Pt is sitting up in chair, comfortable, in no acute distress. Eyes: No Scleral Icterus, PERRLA Ears/Nose/Mouth/Throat: NL Teeth, Lips, Gums, Mucous Membranes Moist Neck: NL Appearance and Movements; NL JVP, Trachea Midline Respiratory: Symmetrical Chest Expansion and Respiratory Effort, Clear to Auscultation Cardiovascular: NL Sounds; No Murmurs; No JVD, RRR, No Edema Abdominal: - - BS hypoactive but appear more active than yesterday; abd soft, still mildly distended; nontender to palpation Extremities: No Edema Skin: No Rash or Ulcers Neurological: Alert and Oriented x 3, NL Gait Result Diagrams: 10/16/18 06:01 10/16/18 06:01 Additional Lab and Data: Laboratory Tests 10/12/18 10/12/18 10/12/18 19:55 19:55 20:51 Lactic Acid 1.0 Calcium 9.2 Magnesium 2.2 Total Bilirubin 1.10 H AST 35 ALT 33 C-Reactive Protein 10.00 H Albumin 4.2 Lipase 12 Ur Specific [place] 1.003 L Microbiology and Other Data: Microbiology 10/12/18 20:51 Stool Gross Appearance - Final Stool C. difficile DNA Amplification - Final 027 Presumptive NEGATIVE Toxigenic C.diff NEGATIVE Diagnostic Imaging: CT abdo/pelvis: transition point in RLQ, SBO Assess/Plan/Problems-Billing Assessment: 78 year old man w/ recurrent small bowel obstruction. - Patient Problems (1) Small bowel obstruction Comment: -Pt continues to improve, producing BM and flatus -Advanced to clears -Continue D5 1/2 NS -Antiemetics, will place NGT if vomiting (2) Hypophosphatemia Comment: -K phos 10 once ordered (3) History of renal stent Comment: -BUN, Cr have normalized (4) DVT prophylaxis Comment: -Continue SCDs plus Lovenox (5) Full code status Status and Disposition: Requires inpatient stay for monitoring, potential surgery.
--- NOTE | 2018-10-16 13:20 | PN ---
Progress Note - Progress Note Date of Service: 10/16/18 SOAP: Subjective: Says he continues to feel better Passing formed stool and some flatus now in between BM's No pain Objective: Temp Pulse Resp BP Pulse Ox 98.0 F 56 18 117/58 96 10/16/18 07:53 10/16/18 07:53 10/16/18 08:00 10/16/18 07:53 10/16/18 07:53 PEX: COmfortable ABd is soft and mildly distended. No tenderness. Bowel sounds are decreased. Tympanitic to percussion, however Assessment: Partial SBO-S/P total proctocolectomy with ileal J-Pouch for ulcerative colitis. He says he continues to feel better but on exam remains distended. He would like to start liquids and see how he does. Plan: Clear liquids Follow for now-he remains distended although he says he is having more regular GI function. Will follow-I remain concerned that he will ultimately require surgical intervention but he wants to attempt liquids and see how things go. No urgent immediate indication for surgery now.
[2018-10-16] MEDS ORDERED: Potassium Phosphate IV* 10 MMOLE in NS 0.9% 250 ML* 250 ML IVPB ONE (14:30)
[2018-10-17] MEDS: Enoxaparin(*) 40 MG/0.4 ML SYR SUBCUT SCH ×2 (00:08→23:49)
--- NOTE | 2018-10-17 09:06 | PN ---
Subjective Date of Service: 10/17/18 Interval History: Pt feels a little better. Had 4 small BM's yesterday. Still c/o occasional cramping in abd. 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 PSH J-pouch 1998 w/ Dr. Glover in [place], cholecystectomy, RT ureter stented Objective Active Medications: Enoxaparin Sodium (Lovenox(*)) 40 mg SUBCUT Q24H [facility] Last Admin: 10/17/18 00:08 Dose: 40 mg Dextrose/Sodium Chloride (D5w 10/08 Ns 1000 Ml Bag*) 1,000 mls @ 100 mls/hr IV PER RATE [facility] Last Admin: 10/16/18 12:35 Dose: 100 mls/hr Morphine Sulfate (Morphine Vial*) 2 mg IV Q2H PRN PRN Reason: PAIN Ondansetron HCl (Zofran Inj*) 4 mg IV Q6H PRN PRN Reason: NAUSEA Prochlorperazine Edisylate (Compazine Inj*) 5 mg IV Q6H PRN PRN Reason: NAUSEA/VOMITING Last Admin: 10/13/18 02:24 Dose: 5 mg Vital Signs - 8 hr 10/17/18 10/17/18 10/17/18 03:42 07:30 08:00 Temperature 98.2 F 98.1 F Pulse Rate 51 53 Respiratory 16 16 18 Rate Blood Pressure 119/66 137/72 (mmHg) O2 Sat by Pulse 98 97 Oximetry Oxygen Devices in Use Now: None Appearance: 78 yo M in nAD, aAOx3 Eyes: No Scleral Icterus, PERRLA Ears/Nose/Mouth/Throat: NL Teeth, Lips, Gums, Mucous Membranes Moist Neck: NL Appearance and Movements; NL JVP, Trachea Midline Respiratory: Symmetrical Chest Expansion and Respiratory Effort, Clear to Auscultation Cardiovascular: NL Sounds; No Murmurs; No JVD, RRR Abdominal: - - soft, distended, tympanic, NT Lymphatic: No Cervical Adenopathy Extremities: No Edema, No Clubbing, Cyanosis Skin: No Rash or Ulcers, No Nodules or Sclerosis Neurological: Alert and Oriented x 3, NL Muscle Strength and Tone Result Diagrams: 10/16/18 06:01 10/16/18 06:01 Additional Lab and Data: Laboratory Tests 10/12/18 10/12/18 10/12/18 19:55 19:55 20:51 Lactic Acid 1.0 Calcium 9.2 Magnesium 2.2 Total Bilirubin 1.10 H AST 35 ALT 33 C-Reactive Protein 10.00 H Albumin 4.2 Lipase 12 Ur Specific [place] 1.003 L Microbiology and Other Data: Microbiology 10/12/18 20:51 Stool Gross Appearance - Final Stool C. difficile DNA Amplification - Final 027 Presumptive NEGATIVE Toxigenic C.diff NEGATIVE Diagnostic Imaging: CT abdo/pelvis: transition point in RLQ, SBO Assess/Plan/Problems-Billing Assessment: 78 year old man w/ recurrent small bowel obstruction. - Patient Problems (1) Small bowel obstruction Comment: -Pt continues to improve, producing BM and flatus -cont clears -Continue D5 1/2 NS (2) History of renal stent Comment: And PRIYANKA at admission-resolved (3) DVT prophylaxis Comment: -Continue SCDs plus Lovenox Status and Disposition: Requires inpatient stay for monitoring, potential surgery.
[2018-10-17 09:23] LABS: BUN/Creatinine Ratio 13.5 (8-20); EGFR African American 100.6 (>60); EGFR Non-African American 83.1 (>60); Potassium 3.5 mmol/L (3.5-5.0)
[2018-10-17] MEDS: D5W 1/2 NS 1000 ML BAG* 1,000 ML IV SCH ×2 (10:10→21:25)
--- NOTE | 2018-10-17 10:31 | PN ---
Progress Note - Progress Note Date of Service: 10/17/18 SOAP: Subjective: About the same today-has some distension last night but had large BM and passed gas this morning and feels better Taking minimal po-some nausea OOB and ambulating Objective: Temp Pulse Resp BP Pulse Ox 98.1 F 53 18 137/72 97 10/17/18 07:30 10/17/18 07:30 10/17/18 08:00 10/17/18 07:30 10/17/18 07:30 Intake & Output 10/15/18 10/16/18 10/17/18 10/18/18 06:59 06:59 06:59 06:59 Intake Total 1994 2084 2683 Output Total 068 157 5092 Balance 1345 1385 1013 Intake: IV Fluids 1994 1984 2182 NS (0.9%) 1994 1984 1927 potassium 255 Oral 0 100 500 Output: Urine 228 089 4017 Other: Estimated Void Large Medium Date of Last Bowel 10/15/2018 10/17/18 Movement # Bowel Movements 1 0 1 Estimated Stool Amount Small Medium # Voids 1 2 PEX: Comfortable in chair Abd is soft and distended, not firm. Decreased bowel sounds throughout. No tenderness. Labs pending Assessment: High grade partial bowel obstruction-s/p total proctocolectomy with J-Pouch for ulcerative colitis No significant change Plan: He remains distended-not taking large amounts of liquids. I feel than this obstruction is most likely not going to respond to non-operative management and will most likely require surgery. I discussed this with him this morning-he had his surgery done in [place] with Dr. Pato Glover-[phone]. If surgery is required, he would like to be transferred to [place] for further care. I left message with Dr. Glover's office this morning to discuss case and will wait to hear from him. Continue with clear liquids for now and see how he does.
[2018-10-17] MEDS: KCL 20 MEQ/100 ML IVPREMIX* 20 MEQ/100 ML BAG IV SCH ×2 (14:38→18:20)
[2018-10-18 06:12] LABS: BUN/Creatinine Ratio 10.1 (8-20); EGFR African American 88.9 (>60); EGFR Non-African American 73.5 (>60); Phosphorus 2.6 mg/dL (2.5-5.0); Potassium 3.7 mmol/L (3.5-5.0)
[2018-10-18 07:33] VITALS: BP 105/61
[2018-10-18] MEDS: D5W 1/2 NS 1000 ML BAG* 1,000 ML IV SCH (07:35)
--- NOTE | 2018-10-18 12:47 | DS ---
CC: Dr. Tony Hernandez; Dr. Pato Glover; Dr. Amado Berry * DISCHARGE SUMMARY: DATE OF ADMISSION: 10/12/18 DATE OF DISCHARGE: 10/18/18 PRIMARY CARE PROVIDER: Dr. Tony Hernandez. DISCHARGE DIAGNOSES: High-grade partial small-bowel obstruction and the patient is status post total proctocolectomy with J pouch for ulcerative colitis. MEDICATIONS AT DISCHARGE: None. LABORATORY DATA: On 10/16/18, white blood cell count of 9.2, hemoglobin of 16.0 , hematocrit 47, and platelet count of 204. On 10/18/18, sodium of 137, potassium 3.7, chloride 102, carbon dioxide 30, BUN 10, creatinine 0.99. CT of the abdomen and pelvis obtained on admission, impression: "small, small- bowel obstruction with the point of transition at the lower right abdomen, which may reflect an adhesion. The appearance is similar to 08/04/14. Although the distal bowel is more collapsed, giving a more dramatic transition point. Subtotal colectomy with distal ileocolic anastomosis. Mild fatty infiltration of the liver. Slight induration of the central mesentery which is decreased since the prior study." CONSULTATION DURING THE HOSPITAL STAY: Include Dr. Berry from surgery. HOSPITALIZATION COURSE: Jhoan Bernal is a 78-year-old male who presented to the hospital on 10/12/18 with complaints of abdominal pain. He was noted to have partial small-bowel obstruction. The patient has history of ulcerative colitis , status post total proctocolectomy with J pouch formation in 1998 as well as cholecystectomy and cholelithiasis in the past. The patient was admitted to the hospital. He was not interested in treatment with NG tube. He was treated conservatively and supportively with IV fluids and daily evaluation by surgical consultants. By the time of discharge, the patient tolerated liquid clear diet without any problems. He denied abdominal pain for 24 hours. He had no nausea and vomiting and he had two "regular bowel movements." At this point, although the patient was on clear liquid diet, he requested to be discharged home. 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 The patient was instructed to continue liquid diet for approximately 5 days and then transition to soft diet. If at any point of the transition and advancement of diet he develops any worrisome symptoms including nausea, vomiting, and abdominal pain, the patient is to return to the ED for evaluation or call his primary gastrointestinal surgeon, Dr. Glover. The patient is recommended to follow up with his primary care provider in 4 to [address] Berry in 1 to 2 weeks. PHYSICAL EXAM AT TIME OF DISCHARGE: Blood pressure of 105/61, heart rate 56 and regular, respiratory rate 17, oxygen saturation 99% on room air, temperature is 98.5. General: The patient is a very pleasant 78-year-old male who is not in acute distress, alert, and oriented x3. HEENT: Head atraumatic, normocephalic. Eyes, pupils equal reactive to light and accommodation. Oropharynx is clear. Mucosa moist. Neck: Supple. No JVD. No bruit bilaterally. Cardiovascular: Regular rate and rhythm, no murmur. Respiratory: Clear to auscultation bilaterally. Abdomen: Slightly distended, soft, nontender. Bowel sounds are present in all 4 quadrants. Extremities: There is no edema. Pulses are 2+ bilaterally. No clubbing or cyanosis. Neuro Evaluation : Speech is clear. Cranial nerves II through XII are grossly intact. Motor strength is 5/5 bilaterally. Please note that this is a short summary of the patient's hospital stay. Please refer to further medical records for details. TIME SPENT: Approximately 35 minutes were spent on the patient's discharge. [id number]/[facility] #: [id number] MTDD
--- NOTE | 2018-10-18 12:49 | PN ---
Progress Note - Progress Note Date of Service: 10/18/18 Note: Surgery progress note S: Patient feels much better today. He said overnight he had two normal volume BM that he described as explosive and felt great relief afterwards. No nausea, emesis or abdominal pain. O: Vital Signs: Temp Pulse Resp BP Pulse Ox 98.5 F 56 17 105/61 99 10/18/18 07:26 10/18/18 07:26 10/18/18 07:38 10/18/18 07:26 10/18/18 07:26 Laboratory Last Values WBC 9.2 10^3/ul (3.5-10.8) 10/16/18 06:01 RBC 4.73 10^6/ul (4.00-5.40) 10/16/18 06:01 Hgb 16.0 g/dl (14.0-18.0) 10/16/18 06:01 Hct 47 % (42-52) 10/16/18 06:01 MCV 98 fL (80-94) H 10/16/18 06:01 MCH 34 pg (27-31) H 10/16/18 06:01 MCHC 34 g/dl (31-36) 10/16/18 06:01 RDW 13 % (10.5-15) 10/16/18 06:01 Plt Count 204 10^3/ul (150-450) 10/16/18 06:01 MPV 7.4 fL (7.4-10.4) 10/16/18 06:01 Neut % (Auto) 78.9 % 10/16/18 06:01 Lymph % (Auto) 13.7 % 10/16/18 06:01 [place] % (Auto) 6.7 % 10/16/18 06:01 Eos % (Auto) 0.3 % 10/16/18 06:01 Baso % (Auto) 0.4 % 10/16/18 06:01 Absolute Neuts (auto) 7.3 10^3/ul (1.5-7.7) 10/16/18 06:01 Absolute Lymphs (auto) 1.3 10^3/ul (1.0-4.8) 10/16/18 06:01 Absolute Monos (auto) 0.6 10^3/ul (0-0.8) 10/16/18 06:01 Absolute Eos (auto) 0 10^3/ul (0-0.6) 10/16/18 06:01 Absolute Basos (auto) 0 10^3/ul (0-0.2) 10/16/18 06:01 Absolute Nucleated RBC 0 10^3/ul 10/16/18 06:01 Nucleated RBC % 0.1 10/16/18 06:01 Sodium 137 mmol/L (135-145) 10/18/18 05:42 Potassium 3.7 mmol/L (3.5-5.0) 10/18/18 05:42 Chloride 102 mmol/L (101-111) 10/18/18 05:42 Carbon Dioxide 30 mmol/L (22-32) 10/18/18 05:42 Anion Gap 5 mmol/L (2-11) 10/18/18 05:42 BUN 10 mg/dL (6-24) 10/18/18 05:42 Creatinine 0.99 mg/dL (0.67-1.17) 10/18/18 05:42 Est GFR ( Amer) 88.9 (>60) 10/18/18 05:42 Est GFR (Non-Af Amer) 73.5 (>60) 10/18/18 05:42 BUN/Creatinine Ratio 10.1 (8-20) 10/18/18 05:42 Glucose 124 mg/dL (70-100) H 10/18/18 05:42 Lactic Acid 1.0 mmol/L (0.5-2.0) 10/12/18 19:55 Calcium 9.0 mg/dL (8.6-10.3) 10/18/18 05:42 Phosphorus 2.6 mg/dL (2.5-5.0) 10/18/18 05:42 Magnesium 2.0 mg/dL (1.9-2.7) 10/18/18 05:42 Total Bilirubin 1.10 mg/dL (0.2-1.0) H 10/12/18 19:55 AST 35 U/L (13-39) 10/12/18 19:55 ALT 33 U/L (7-52) 10/12/18 19:55 Alkaline Phosphatase 84 U/L (34-104) 10/12/18 19:55 C-Reactive Protein 10.00 mg/L (<8.01) H 10/12/18 19:55 Total Protein 7.7 g/dL (6.4-8.9) 10/12/18 19:55 Albumin 4.2 g/dL (3.2-5.2) 10/12/18 19:55 Globulin 3.5 g/dL (2-4) 10/12/18 19:55 Albumin/Globulin Ratio 1.2 (1-3) 10/12/18 19:55 Lipase 12 U/L (11.0-82.0) 10/12/18 19:55 Urine Color Yellow 10/12/18 20:51 Urine Appearance Clear 10/12/18 20:51 Urine pH 6.0 (5-9) 10/12/18 20:51 Ur Specific [place] 1.003 (1.010-1.030) L 10/12/18 20:51 Urine Protein Negative (Negative) 10/12/18 20:51 Urine Ketones Negative (Negative) 10/12/18 20:51 Urine Blood Negative (Negative) 10/12/18 20:51 Urine Nitrate Negative (Negative) 10/12/18 20:51 Urine Bilirubin Negative (Negative) 10/12/18 20:51 Urine Urobilinogen Negative (Negative) 10/12/18 20:51 Ur Leukocyte Esterase Negative (Negative) 10/12/18 20:51 Urine Glucose Negative (Negative) 10/12/18 20:51 Influenza A (Rapid) Negative (Negative) 10/13/18 09:19 Influenza B (Rapid) Negative (Negative) 10/13/18 09:19 Intake & Output 10/17/18 10/18/18 10/18/18 22:59 06:59 14:59 Intake Total 1520 998 Output Total 0 Balance 1520 998 Intake: IV Fluids 940 998 D5W 1/2 NS 940 998 IVPB 100 potassium 100 Oral 480 Output: Urine 0 Other: Estimated Void Medium Medium Medium Date of Last Bowel 10/18/18 Movement # Voids 2 2 2 Abdominal exam: abd slightly distended, tympanic, non tender A/P: 78 M sp total proctocolectomy and J pouch for UC with SBO, improving. - Patient feels much improved and wishes to go home on clears and advance himself at home. He says he plans to be very cautious about advancing his diet. He knows to return to the hospital if any acute issues comes up but he prefers to be at home. He also plans to follow up with his surgeon in [place] once he is feeling better. - Patient should seek medical care if he develops recurrent abdominal pain, nausea, emesis. I recommended he watch his fluid intake and urine output for signs of dehydration while he is taking clears.
== END 2018-10-18 12:10 | disposition home or self-care (01) | DRG 247 ==
LOC: ED 19:11 → OBSVTOIN 23:17 → SSU 23:17
PROVIDERS: ADMIT Internal Medicine; ATTEND Internal Medicine
DX: K56.609 Unspecified intestinal obstruction, unspecified as to partial versus complete obstruction (principal); N17.9 Acute kidney failure, unspecified; E11.9 Type 2 diabetes mellitus without complications; K21.9 Gastro-esophageal reflux disease without esophagitis; Z90.49 Acquired absence of other specified parts of digestive tract; Z88.2 Allergy status to sulfonamides; Z87.891 Personal history of nicotine dependence; Z72.89 Other problems related to lifestyle; Z83.3 Family history of diabetes mellitus; Z84.1 Family history of disorders of kidney and ureter; Z82.49 Family history of ischemic heart disease and other diseases of the circulatory system; N40.0 Benign prostatic hyperplasia without lower urinary tract symptoms; Z96.0 Presence of urogenital implants; Z53.29 Procedure and treatment not carried out because of patient's decision for other reasons; E83.39 Other disorders of phosphorus metabolism; K76.0 Fatty (change of) liver, not elsewhere classified
CPT/HCPCS: 36415; 74018; 74019; 74177; 80048; 80053; 81003; 83605; 83690; 83735; 84100; 85025; 86140; 87045; 87046; 87493; 87899; 99284; J0780; J1650; J2405; J3480; Q9967

== ENCOUNTER 2018-12-08 11:27 | Day surgery (SDC) | payer BC ==
[~2018-12-08 11:27] MED LIST: Buffered Lidocaine 1% SYRIN* 1 ML/SYRINGE INTRADERM ONE; Famotidine IV* 10 MG/ML 2 ML (20 mg) IV ONE; Lactated Ringers 1000 ML Bag* 1,000 ML IV SCH
[2018-12-08] MEDS ORDERED: Dexamethasone IV* 4 MG/ML 1 ML (4 MG) ONE ×2 (12:36→15:30)
[2018-12-08] MEDS ORDERED: Famotidine IV* 10 MG/ML 2 ML (20 mg) ONE (12:36)
[2018-12-08] MEDS ORDERED: fentaNYL* 50 MCG/ML 2 ML VIAL (100 MCG VIAL) ONE (13:20)
[2018-12-08] MEDS ORDERED: Midazolam* 1 MG/ML 5 ML VIAL (5 MG) ONE (13:21)
[2018-12-08] MEDS ORDERED: Lidocaine 1% MPF wEPI 200,000* 30 ML SDV ONE (14:38)
[2018-12-08] MEDS ORDERED: Ropivacaine* 2 MG/ML 20 ML VIAL (0.2%) ONE (14:38)
[2018-12-08] MEDS ORDERED: Metoclopramide IV* 5 MG/ML 2 ML VIAL ONE (15:20)
[2018-12-08] MEDS ORDERED: Propofol* 10 MG/ML 20 ML BTL ONE (15:30)
[2018-12-08] MEDS ORDERED: Ondansetron INJ* 2 MG/ML VIAL ONE (15:30)
[2018-12-08] MEDS ORDERED: Ketorolac INJ* 30 MG/ML 1 ML VIAL ONE (15:30)
[2018-12-08] MEDS ORDERED: Lidocaine 2% PF * 5 ML VIAL ONE (15:30)
[2018-12-08] MEDS ORDERED: Acetaminophen TAB* 325 MG PO PRN (15:48)
[2018-12-08] MEDS ORDERED: DiMENhydriNATE IV* 50 MG/ML VIAL IV PUSH PRN (15:48)
[2018-12-08 16:42] VITALS: BP 101/70
--- NOTE | 2018-12-09 01:23 | OP ---
DATE OF OPERATION: 12/08/18 - [facility] DATE OF : 44 SURGEON: Donnell Stafford MD LEGAL BILLING ANALYST: HANK student, Larissa Parker. ANESTHESIOLOGIST: Dr. Harmon. ANESTHESIA: General. PRE-OP DIAGNOSIS: Left knee medial meniscus tear. POST-OP DIAGNOSIS: Left knee medial and lateral meniscus tear and mild arthritis as well as chondrocalcinosis. OPERATIVE PROCEDURE: Left knee arthroscopy, partial meniscectomy. COMPLICATIONS: None. ESTIMATED BLOOD LOSS: Minimal. INDICATIONS: Mr. Bernal is a 78-year-old male with persistent knee pain which is going on for 6 to 7 months. He has had an injection in the past. He also has catching and locking, blocked motion, difficulty going up and downstairs. He is very active. He does not have significant arthritis on MRI. 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 After extensive discussion of the risks and benefits to surgical treatment and the fact that he has blocked motion, he has elected to proceed with surgery. The risks include, but not limited to, bleeding, infection, damage to nerves, vessels, surrounding structures, wound non-healing, persistent pain, need for further surgery, scarring, stiffness, incomplete relief of symptoms, risk of anesthesia. DESCRIPTION OF PROCEDURE: The patient was greeted in the preoperative area by the attending surgeon. Correct extremity was marked. Consent was confirmed. The patient was brought back to the operating suite where he was placed in supine position on the operating table. He then underwent general anesthesia with endotracheal and LMA intubation, after which he was placed in the appropriate position. The lateral post was placed and nonsterile tourniquet was placed high on the proximal thigh. The left leg was then prepped and draped in the usual sterile fashion using chlorhexidine soap, scrub, and alcohol wipe and a final prep with ChloraPrep. After appropriate surgical pause indicating site, side, procedure, and administration of antibiotics, the knee was intra-articularly injected with 1% lidocaine with epi. The lateral portal was made in an outside-in fashion. The scope was positioned. There was abundant synovitis anteriorly, medially, and laterally which was debrided back using the shaver. The ACL was intact. The PCL was intact but had some fraying. There was a chondral flap on the medial femoral condyle that was unstable, this was debrided back using the shaver. There was evidence of medial meniscus tear that extruded into joint itself and this was then debrided back using biters and kenji. Again, there was chondrocalcinosis that was visible throughout the entire knee. The care was taken to try to remove any of the unstable flaps, the tissue quality was not very good. The medial plateau had grade 2 changes. The medial femoral condyle had small areas of grade 2 changes with unstable flaps and a small 4 x 3 mm area of grade 3 changes. Medial lateral gutters were intact. The knee was placed in full extension. Patellofemoral joint was examined. There was a ridge down the center that had grade 2 changes. The undersurface of the patella had areas of grade 2 changes with small unstable flaps. This was debrided back using a shaver. Lateral gutter was intact. Lateral compartment was examined with the knee in [id number]. There was evidence of a radial spilt tear of the meniscus as well as chondrocalcinosis and a small tear of the root of the meniscus which was flapped. These were all debrided back using the kenji and the biters. Remainder of the meniscus was intact. Approximately 25 % of meniscus was removed. Lateral femoral condyle had grade 2 changes and lateral plateau had grade 1 to 2 changes. The knee was thoroughly lavaged removing any loose debris. The wounds were then copiously irrigated and the portals were closed with 3-0 nylon interrupted fashion. Sterile dressings were applied as well as Cryo/Cuff. The knee was intra-articularly injected with 0.2 % ropivacaine. Sterile dressings were applied. He was awoken from anesthesia and transferred to the PACU in stable condition. POSTOPERATIVE PLAN: He will be weightbearing as tolerated. Range of motion as tolerated. DVT prophylaxis was considered, but deferred due to no previous personal or family history. I will see the patient back in 10 to 14 days. [id number]/[facility] #: [id number] SARAH
== END 2018-12-08 16:40 | disposition home or self-care (01) ==
LOC: OREAST 11:27
PROVIDERS: ATTEND Orthopaedic Surgery
DX: M23.232 Derangement of other medial meniscus due to old tear or injury, left knee (principal); M23.201 Derangement of unspecified lateral meniscus due to old tear or injury, left knee; M17.12 Unilateral primary osteoarthritis, left knee; M11.262 Other chondrocalcinosis, left knee; Z87.891 Personal history of nicotine dependence; Z87.442 Personal history of urinary calculi
CPT/HCPCS: J1100; J1885; J2001; J2250; J2405; J2704; J2765; J2795; J3010

== ENCOUNTER 2021-02-06 15:08 | Inpatient (IN) ==
[2021-02-06 15:47] LABS: ABS Eosinophils 0.1 10^3/ul (0-0.6); ABS Lymphocytes 0.7 10^3/ul (1.0-4.8); ABS Monocytes 0.9 10^3/ul (0-0.8); ABS Neutrophils 11.6 10^3/ul (1.5-7.7); Eosinophil % 0.8 %; Hematocrit 52 % (42-52); Hemoglobin 17.9 g/dL (14.0-18.0); Lymphocyte % 5.3 %; Mean Corpuscular HGB Conc 34 g/dL (31-36); Mean Corpuscular Hemoglobin 34 pg (27-31); Mean Corpuscular Volume 100 fL (80-94); Mean Platelet Volume 6.7 fL (7.4-10.4); Platelet Count 276 10^3/uL (150-450); Red Cell Distribution Width 13 % (10-15); White Blood Count 13.3 10^3/uL (3.5-10.8)
[2021-02-06] MEDS ORDERED: Ondansetron 4 mg VIAL 2 MG/ML 2 ml VIAL IV PRN (16:31)
[2021-02-06 16:58] LABS: ALT 15 U/L (7-52); Albumin 4.2 g/dL (3.2-5.2); Albumin/Globulin Ratio 1.3 (1-3); Alkaline Phosphatase 77 U/L (34-104); Blood Urea Nitrogen 22 mg/dL (6-24); C Reactive Protein 66.16 mg/L (<8.01); CO2 Carbon Dioxide 20 mmol/L (22-32); Calcium 9.4 mg/dL (8.6-10.3); Chloride 100 mmol/L (101-111); EGFR African American 63.5 (>60); EGFR Non-African American 52.5 (>60); Globulin 3.2 g/dL (2-4); Glucose 117 mg/dL (70-100); Lipase 25 U/L (11.0-82.0); Sodium 131 mmol/L (135-145); Total Protein 7.4 g/dL (6.4-8.9)
[2021-02-06 17:21] LABS: Anion Gap 11 mmol/L (2-11)
[2021-02-06 18:06] LABS: Potassium Redraw 4.6 mmol/L (3.5-5.0)
[2021-02-06] MEDS: NS 0.45% KCl 20 Meq 1000 ml 1,000 ML IV SCH (18:08)
[2021-02-06] MEDS: Enoxaparin 40 MG/0.4 ML SYR SUBCUT SCH (23:41)
[2021-02-07 05:03] LABS: Hematocrit 50 % (42-52); Hemoglobin 17.4 g/dL (14.0-18.0); Mean Corpuscular HGB Conc 35 g/dL (31-36); Mean Corpuscular Hemoglobin 35 pg (27-31); Mean Corpuscular Volume 100 fL (80-94); Mean Platelet Volume 6.4 fL (7.4-10.4); Platelet Count 282 10^3/uL (150-450); Red Blood Count 5.01 10^6 /uL (4.18-5.48); Red Cell Distribution Width 13 % (10-15); White Blood Count 10.3 10^3/uL (3.5-10.8)
[2021-02-07] MEDS: NS 0.45% KCl 20 Meq 1000 ml 1,000 ML IV SCH (17:49)
[2021-02-07] MEDS: Enoxaparin 40 MG/0.4 ML SYR SUBCUT SCH (22:11)
[2021-02-08] MEDS: NS 0.45% KCl 20 Meq 1000 ml 1,000 ML IV SCH (08:43)
[2021-02-08 11:15] LABS: ABS Eosinophils 0.1 10^3/ul (0-0.6); ABS Lymphocytes 1.2 10^3/ul (1.0-4.8); ABS Monocytes 0.9 10^3/ul (0-0.8); ABS Neutrophils 5.7 10^3/ul (1.5-7.7); Hematocrit 51 % (42-52); Hemoglobin 17.6 g/dL (14.0-18.0); Lymphocyte % 14.9 %; Mean Corpuscular HGB Conc 35 g/dL (31-36); Mean Corpuscular Hemoglobin 35 pg (27-31); Mean Corpuscular Volume 100 fL (80-94); Mean Platelet Volume 6.6 fL (7.4-10.4); Nucleated Red Blood Cells % 0.1; Platelet Count 332 10^3/uL (150-450); Red Blood Count 5.06 10^6 /uL (4.18-5.48); Red Cell Distribution Width 13 % (10-15)
[2021-02-08 11:51] LABS: Calcium 9.3 mg/dL (8.6-10.3); EGFR African American 65.2 (>60); EGFR Non-African American 53.9 (>60); Magnesium 2.2 mg/dL (1.9-2.7)
[2021-02-08] MEDS ORDERED: Calcium Carb (TUMS) 500 mg CHEW TAB PO PRN (16:36)
[2021-02-08] MEDS: Enoxaparin 40 MG/0.4 ML SYR SUBCUT SCH (22:46)
[2021-02-09] MEDS: NS 0.45% KCl 20 Meq 1000 ml 1,000 ML IV SCH (01:03)
[2021-02-09 05:16] LABS: ABS Eosinophils 0.1 10^3/ul (0-0.6); ABS Lymphocytes 0.8 10^3/ul (1.0-4.8); ABS Monocytes 0.7 10^3/ul (0-0.8); ABS Neutrophils 5.9 10^3/ul (1.5-7.7); Eosinophil % 0.8 %; Hematocrit 48 % (42-52); Hemoglobin 16.7 g/dL (14.0-18.0); Lymphocyte % 11.2 %; Mean Corpuscular HGB Conc 35 g/dL (31-36); Mean Corpuscular Hemoglobin 35 pg (27-31); Mean Corpuscular Volume 100 fL (80-94); Mean Platelet Volume 6.8 fL (7.4-10.4); Platelet Count 297 10^3/uL (150-450); Red Cell Distribution Width 13 % (10-15); White Blood Count 7.6 10^3/uL (3.5-10.8)
[2021-02-09 05:29] LABS: Calcium 9.1 mg/dL (8.6-10.3); EGFR African American 76.7 (>60); EGFR Non-African American 63.4 (>60); Potassium 4.2 mmol/L (3.5-5.0)
[2021-02-09] MEDS ORDERED: Iodixanol (CONTRAST) 320 MG/ML 100 ML SDV IV ONE (15:54)
[2021-02-09] MEDS: Enoxaparin 40 MG/0.4 ML SYR SUBCUT SCH (22:51)
[2021-02-10] MEDS: NS 0.45% KCl 20 Meq 1000 ml 1,000 ML IV SCH ×2 (02:19→18:28)
[2021-02-10 08:36] LABS: ABS Lymphocytes 0.9 10^3/ul (1.0-4.8); ABS Monocytes 0.9 10^3/ul (0-0.8); ABS Neutrophils 11.7 10^3/ul (1.5-7.7); Eosinophil % 0.2 %; Hematocrit 48 % (42-52); Hemoglobin 17.2 g/dL (14.0-18.0); Lymphocyte % 6.9 %; Mean Corpuscular HGB Conc 36 g/dL (31-36); Mean Corpuscular Hemoglobin 35 pg (27-31); Mean Corpuscular Volume 99 fL (80-94); Mean Platelet Volume 6.7 fL (7.4-10.4); Platelet Count 333 10^3/uL (150-450); Red Blood Count 4.88 10^6 /uL (4.18-5.48); Red Cell Distribution Width 13 % (10-15); White Blood Count 13.6 10^3/uL (3.5-10.8)
[2021-02-10 08:53] LABS: Calcium 9.3 mg/dL (8.6-10.3); Potassium 4.2 mmol/L (3.5-5.0)
[2021-02-10 08:58] LABS: EGFR African American 73.7 (>60); EGFR Non-African American 60.9 (>60)
[2021-02-10] MEDS: Enoxaparin 40 MG/0.4 ML SYR SUBCUT SCH (21:45)
[2021-02-11 06:25] LABS: ABS Eosinophils 0.1 10^3/ul (0-0.6); ABS Lymphocytes 1.1 10^3/ul (1.0-4.8); ABS Monocytes 0.9 10^3/ul (0-0.8); ABS Neutrophils 13.5 10^3/ul (1.5-7.7); Eosinophil % 0.4 %; Hematocrit 47 % (42-52); Hemoglobin 16.4 g/dL (14.0-18.0); Mean Corpuscular HGB Conc 35 g/dL (31-36); Mean Corpuscular Hemoglobin 35 pg (27-31); Mean Corpuscular Volume 100 fL (80-94); Mean Platelet Volume 6.6 fL (7.4-10.4); Nucleated Red Blood Cells % 0.1; Platelet Count 339 10^3/uL (150-450); Red Blood Count 4.72 10^6 /uL (4.18-5.48); Red Cell Distribution Width 13 % (10-15); White Blood Count 15.6 10^3/uL (3.5-10.8)
[2021-02-11 06:40] LABS: Calcium 9.2 mg/dL (8.6-10.3); EGFR African American 73.7 (>60); EGFR Non-African American 60.9 (>60); Potassium 4.4 mmol/L (3.5-5.0)
[2021-02-11] MEDS: NS 0.45% KCl 20 Meq 1000 ml 1,000 ML IV SCH (10:40)
[2021-02-11 13:08] LABS: C Reactive Protein 59.3 mg/L (<8.01)
[2021-02-11 13:09] LABS: C Reactive Protein 99.41 mg/L (<8.01)
[2021-02-11] MEDS: Enoxaparin 40 MG/0.4 ML SYR SUBCUT SCH (23:19)
[2021-02-12 05:41] LABS: ABS Monocytes 0.9 10^3/ul (0-0.8); ABS Neutrophils 14.1 10^3/ul (1.5-7.7); Eosinophil % 0.3 %; Hematocrit 48 % (42-52); Hemoglobin 16.4 g/dL (14.0-18.0); Lymphocyte % 6.2 %; Mean Corpuscular HGB Conc 35 g/dL (31-36); Mean Corpuscular Hemoglobin 35 pg (27-31); Mean Corpuscular Volume 100 fL (80-94); Mean Platelet Volume 6.8 fL (7.4-10.4); Platelet Count 334 10^3/uL (150-450); Red Blood Count 4.76 10^6 /uL (4.18-5.48); Red Cell Distribution Width 13 % (10-15); White Blood Count 16.1 10^3/uL (3.5-10.8)
[2021-02-12 05:58] LABS: EGFR Non-African American 66.1 (>60); Potassium 4.2 mmol/L (3.5-5.0)
[2021-02-12 11:26] LABS: C Reactive Protein 99.77 mg/L (<8.01)
[2021-02-12 13:03] LABS: Urine Appearance Clear; Urine Bilirubin Negative (Negative); Urine Blood 2+ (Negative); Urine Color Yellow; Urine Glucose 1+(50 mg/dL) (Negative); Urine Ketones Trace (Negative); Urine Nitrite Negative (Negative); Urine Protein 2+(100 mg/dL) (Negative); Urine Specific Gravity 1.025 (1.002-1.030); Urine Urobilinogen Negative (Negative)
[2021-02-12 13:08] LABS: Albumin 3.9 g/dL (3.2-5.2); Indirect Bilirubin 0.9 mg/dL (0.3-1.0); Total Bilirubin 1.1 mg/dL (0.2-1.0)
[2021-02-12 13:14] LABS: Albumin/Globulin Ratio 1.3 (1-3); Total Protein 6.9 g/dL (6.4-8.9)
[2021-02-12 13:19] LABS: Urine Bacteria Absent (Absent); Urine Red Blood Cell Trace(0-2/hpf) (Absent); Urine White Blood Cell Trace(0-5/hpf) (Absent)
[2021-02-12] MEDS: Enoxaparin 40 MG/0.4 ML SYR SUBCUT SCH (21:07)
[2021-02-13 05:59] LABS: ABS Lymphocytes 1.3 10^3/ul (1.0-4.8); ABS Monocytes 0.9 10^3/ul (0-0.8); ABS Neutrophils 14.6 10^3/ul (1.5-7.7); Eosinophil % 0.3 %; Hematocrit 46 % (42-52); Hemoglobin 15.9 g/dL (14.0-18.0); Lymphocyte % 7.9 %; Mean Corpuscular HGB Conc 35 g/dL (31-36); Mean Corpuscular Hemoglobin 35 pg (27-31); Mean Corpuscular Volume 100 fL (80-94); Mean Platelet Volume 6.9 fL (7.4-10.4); Platelet Count 351 10^3/uL (150-450); Red Blood Count 4.56 10^6 /uL (4.18-5.48); Red Cell Distribution Width 13 % (10-15); White Blood Count 16.9 10^3/uL (3.5-10.8)
[2021-02-13] MEDS: Enoxaparin 40 MG/0.4 ML SYR SUBCUT SCH (20:49)
[2021-02-14] MEDS ORDERED: Benzocaine/Menthol LOZ MT PRN (09:48)
[2021-02-14 09:53] LABS: ABS Basophils 0.1 10^3/ul (0-0.2); ABS Eosinophils 0.1 10^3/ul (0-0.6); ABS Lymphocytes 1.3 10^3/ul (1.0-4.8); ABS Monocytes 1.1 10^3/ul (0-0.8); ABS Neutrophils 14.2 10^3/ul (1.5-7.7); Eosinophil % 0.4 %; Hematocrit 44 % (42-52); Hemoglobin 15.7 g/dL (14.0-18.0); Lymphocyte % 7.9 %; Mean Corpuscular HGB Conc 36 g/dL (31-36); Mean Corpuscular Hemoglobin 35 pg (27-31); Mean Corpuscular Volume 97 fL (80-94); Mean Platelet Volume 6.8 fL (7.4-10.4); Platelet Count 354 10^3/uL (150-450); Red Blood Count 4.52 10^6 /uL (4.18-5.48); Red Cell Distribution Width 13 % (10-15); White Blood Count 16.7 10^3/uL (3.5-10.8)
[2021-02-14 10:25] LABS: EGFR Non-African American 68.3 (>60); Potassium 3.7 mmol/L (3.5-5.0)
[2021-02-14 10:26] LABS: Calcium 8.7 mg/dL (8.6-10.3); EGFR African American 82.7 (>60)
[2021-02-14] MEDS: Enoxaparin 40 MG/0.4 ML SYR SUBCUT SCH (23:09)
[2021-02-15 07:06] LABS: Hematocrit 47 % (42-52); Hemoglobin 16.5 g/dL (14.0-18.0); Mean Corpuscular HGB Conc 35 g/dL (31-36); Mean Corpuscular Hemoglobin 35 pg (27-31); Mean Corpuscular Volume 99 fL (80-94); Platelet Count 383 10^3/uL (150-450); Red Blood Count 4.77 10^6 /uL (4.18-5.48); Red Cell Distribution Width 13 % (10-15); White Blood Count 14.3 10^3/uL (3.5-10.8)
[2021-02-15 07:10] LABS: Calcium 9.5 mg/dL (8.6-10.3); Potassium 4.3 mmol/L (3.5-5.0)
[2021-02-15 07:16] LABS: C Reactive Protein 137.45 mg/L (<8.01); EGFR African American 70.2 (>60)
[2021-02-15 12:17] VITALS: BP 101/70
== END 2021-02-15 16:00 | disposition home or self-care (01) | DRG 254 ==
LOC: ED 15:08 → SSU 18:18 → MEDTELE 02-12 19:27
PROVIDERS: ADMIT Hospitalist; ATTEND Internal Medicine